=== PATIENT | female | born 1995 | race Caucasian/White ===

== ENCOUNTER 2018-05-21 20:10 | Emergency (ER) | payer MEDICAID ==
[~2018-05-21] VITALS: Ht 167.6 cm; Wt 90.1 kg
[2018-05-21 20:29] VITALS: BP 137/84
[2018-05-21] MEDS ORDERED: CARBAMIDE PEROXIDE EAR DROPS 6.5%, 15ML EACH EAR STA (20:36)
[2018-05-21] MEDS ORDERED: CARBAMIDE PEROXIDE EAR DROPS 6.5%, 15ML ONE (21:57)
== END 2018-05-21 23:21 | disposition home or self-care (01) ==
LOC: ED 23:15
DX: H66.92 Otitis media, unspecified, left ear (principal); H61.22 Impacted cerumen, left ear; Z87.891 Personal history of nicotine dependence
CPT/HCPCS: 69209; 99283